=== PATIENT | male | born 1935 | race African-American/Black ===

== ENCOUNTER 2023-09-11 15:00 | Inpatient (IN) | payer MEDICARE ==
[~2023-09-11] VITALS: Ht 185.4 cm; Wt 81.3 kg
[2023-09-11 15:09] VITALS: O2SAT 90
[2023-09-11] MEDS ORDERED: SODIUM CHLORIDE 0.9% 1,000 ML IV ONE (15:15)
[2023-09-11 15:31] LABS: BG BASE EXCESS -8.5 mmol/L (-2.0-2.0); BG CARBOXYHEMOGLOBIN 0.3 % (0.5-1.5); BG DEOXYHEMOGLOBIN 0.6 % (0.0-5.0); BG HCO3 ACT 15.9 mmol/L (22.0-26.0); BG METHEMOGLOBIN 0.3 % (0.0-1.5); BG OXYGEN SATURATION 99.4 % (92.0-98.5); BG OXYHEMOGLOBIN 98.8 % (94.0-97.0); BG PCO2 29.3 mmHg (35.0-45.0); BG PH 7.353 (7.350-7.450); BG PO2 189.8 mmHg (75.0-100.0); BG SAMPLE SITE RIGHT BRACHIAL; BG TOTAL HEMOGLOBIN 9.9 g/dL (12.0-18.0); BG VENT MODE NASAL CANNULA
[2023-09-11 18:00] LABS: BASOPHILS % 0.3 % (0.0-2.0); EOSINOPHILS % 1.1 % (0.0-5.0); HEMATOCRIT. 25.9 % (42.0-52.0); HEMOGLOBIN. 8.5 g/dL (14.0-18.0); LYMPHOCYTES % 13.3 % (20.0-50.0); MEAN CORPUSCULAR HEMOGLOBIN 31.3 pg (28.0-32.0); MEAN CORPUSCULAR HGB CONC 32.8 g/dL (31.0-37.0); MEAN CORPUSCULAR VOLUME 95.3 fL (80.0-94.0); MEAN PLATELET VOLUME 10.4 fl (7.4-10.4); MONOCYTES % 7.3 % (2.0-8.0); PLATELET 193 x1000/uL (130-400); RED BLOOD CELL COUNT 2.72 mill/uL (4.7-6.1); RED CELL DISTRIBUTION WIDTH 16.3 % (11.6-14.6); WHITE BLOOD COUNT 9.1 x1000/uL (4.5-11.0)
[2023-09-11 18:12] LABS: ALANINE AMINOTRANSFERASE 18 IU/L (10-49); ALBUMIN 3.3 g/dL (3.2-4.8); ASPARTATE AMINOTRANSFERASE 28 IU/L (<34); BILIRUBIN TOTAL 0.2 mg/dL (0.1-1.0); CALCIUM 8.8 mg/dL (8.7-10.4); CARBON DIOXIDE 17 mEq/L (21-32); CHLORIDE 101 mEq/L (98-107); CREATININE 4.3 mg/dL (0.6-1.3); GLUCOSE 84 mg/dL (70-105); PROTEIN TOTAL 6.3 g/dL (6.0-8.3); SODIUM 131 mEq/L (136-145)
[2023-09-11 18:19] LABS: TROPONIN I HIGH SENSITIVITY 57 ng/L (3.0-53); UREA NITROGEN BLOOD 125 mg/dL (9-23)
[2023-09-11 19:42] LABS: TROPONIN I HIGH SENSITIVITY 56 ng/L (3.0-53)
[2023-09-11] MEDS ORDERED: MAGNESIUM 2 G PREMIX 50 ML IV NR (20:30)
[2023-09-11] MEDS ORDERED: NOREPINEPHRINE 8MG/250ML PMX 250 ML IV PRN (20:30)
[2023-09-12] VITALS (40 sets, daily range): BP systolic 92–121; BP diastolic 44–70; PULSE 65–81; RESP 11–22; TEMP 97.5–97.9
[2023-09-12] MEDS ORDERED: ACETAMINOPHEN 325MG TABLET PO PRN (07:45)
[2023-09-12] MEDS: SODIUM CHLORIDE 0.9% 1,000 ML IV SCH ×2 (08:37→18:07)
[2023-09-12] MEDS: ASPIRIN 81MG TABLET PO SCH (16:18)
[2023-09-12] MEDS: CLOPIDOGREL 75MG TABLET PO SCH (16:18)
[2023-09-12] MEDS: PANTOPRAZOLE SODIUM 40 MG/VIAL IV SCH (16:19)
[2023-09-12 17:52] LABS: CLARITY URINE CLEAR (CLEAR); COLOR URINE YELLOW (YELLOW)
[2023-09-12 17:53] LABS: GLUCOSE URINE NEGATIVE (NEGATIVE); KETONES URINE 1+ (NEGATIVE); LEUKOCYTE ESTERASE URINE NEGATIVE (NEGATIVE); NITRITE URINE NEGATIVE (NEGATIVE); OCCULT BLOOD URINE NEGATIVE (NEGATIVE); PH URINE 5.5 (4.5-8.0); PROTEIN URINE NEGATIVE (NEGATIVE); SPECIFIC GRAVITY URINE 1.015 (1.005-1.030); UROBILINOGEN URINE 0.2 E.U./dL (0.2-1.0)
[2023-09-12 18:29] LABS: BASOPHILS % 0.3 % (0.0-2.0); EOSINOPHILS % 0.7 % (0.0-5.0); HEMATOCRIT. 29.1 % (42.0-52.0); HEMOGLOBIN. 9.5 g/dL (14.0-18.0); MEAN CORPUSCULAR HEMOGLOBIN 30.3 pg (28.0-32.0); MEAN CORPUSCULAR HGB CONC 32.7 g/dL (31.0-37.0); MEAN CORPUSCULAR VOLUME 92.7 fL (80.0-94.0); MONOCYTES % 6.1 % (2.0-8.0); NEUTROPHILS % 82.9 % (40.0-76.0); PLATELET 226 x1000/uL (130-400); RED BLOOD CELL COUNT 3.14 mill/uL (4.7-6.1); RED CELL DISTRIBUTION WIDTH 16.6 % (11.6-14.6); WHITE BLOOD COUNT 10.1 x1000/uL (4.5-11.0)
[2023-09-12] MEDS ORDERED: FOLI1TAB33 MT (18:40)
[2023-09-12] MEDS ORDERED: CARV6.2548 PO (18:40)
[2023-09-12] MEDS ORDERED: ALLO300T2 MT (18:40)
[2023-09-12] MEDS ORDERED: MELO-106 PO (18:40)
[2023-09-12] MEDS ORDERED: ASPI-1079 PO (18:40)
[2023-09-12] MEDS ORDERED: ATOR20TA PO (18:40)
[2023-09-12] MEDS ORDERED: CLOP75TA33 PO (18:40)
[2023-09-12] MEDS ORDERED: NITR0.4T49 SL (18:40)
[2023-09-12] MEDS ORDERED: INDA1.255 PO (18:40)
[2023-09-12 18:51] LABS: CALCIUM 8.7 mg/dL (8.7-10.4)
[2023-09-12 19:00] LABS: CREATININE 2.8 mg/dL (0.6-1.3)
[2023-09-12 22:16] LABS: CALCIUM 8.8 mg/dL (8.7-10.4); CREATININE 2.7 mg/dL (0.6-1.3)
[2023-09-12 22:56] LABS: HEPATITIS B SURFACE ANTIGEN NEGATIVE (Negative); HEPATITIS C AB NON REACTIVE (Neg) (Negative)
[2023-09-13] VITALS (54 sets, daily range): BP systolic 90–127; BP diastolic 46–77; PULSE 64–97; RESP 10–22; TEMP 97.7–98
[2023-09-13] MEDS: SODIUM CHLORIDE 0.9% 1,000 ML IV SCH ×2 (04:00→14:00)
[2023-09-13 06:28] LABS: BASOPHILS % 0.5 % (0.0-2.0); EOSINOPHILS % 1.3 % (0.0-5.0); HEMATOCRIT. 29.6 % (42.0-52.0); HEMOGLOBIN. 9.7 g/dL (14.0-18.0); LYMPHOCYTES % 13.1 % (20.0-50.0); MEAN CORPUSCULAR HEMOGLOBIN 30.9 pg (28.0-32.0); MEAN CORPUSCULAR HGB CONC 32.8 g/dL (31.0-37.0); MEAN PLATELET VOLUME 9.7 fl (7.4-10.4); MONOCYTES % 7.7 % (2.0-8.0); NEUTROPHILS % 77.4 % (40.0-76.0); PLATELET 222 x1000/uL (130-400); RED BLOOD CELL COUNT 3.15 mill/uL (4.7-6.1); RED CELL DISTRIBUTION WIDTH 16.9 % (11.6-14.6)
[2023-09-13 08:52] LABS: CARBON DIOXIDE 19 mEq/L (21-32); CHLORIDE 109 mEq/L (98-107); CREATINE KINASE 81 IU/L (46-171); GLUCOSE 80 mg/dL (70-105); PHOSPHORUS 3.7 mg/dL (2.5-4.9); POTASSIUM 5.4 mEq/L (3.5-5.1); SODIUM 139 mEq/L (136-145); UREA NITROGEN BLOOD 70 mg/dL (9-23)
[2023-09-13] MEDS: CITRIC ACID/SODIUM CITRATE SOLN 30ML UDC PO SCH ×4 (09:00→18:23)
[2023-09-13] MEDS ORDERED: SODIUM POLYSTYRENE SULFONATE 15 G/60 ML BOT PO NR (09:00)
[2023-09-13 09:07] LABS: CREATININE 2.6 mg/dL (0.6-1.3)
[2023-09-13] MEDS: CLOPIDOGREL 75MG TABLET PO SCH (09:35)
[2023-09-13] MEDS: PANTOPRAZOLE SODIUM 40 MG/VIAL IV SCH (09:35)
[2023-09-13] MEDS: ASPIRIN 81MG TABLET PO SCH (09:35)
[2023-09-14] VITALS (16 sets, daily range): BP systolic 110–133; BP diastolic 50–68; PULSE 67–114; RESP 12–26; TEMP 97.5–98.7
[2023-09-14] MEDS: SODIUM CHLORIDE 0.9% 1,000 ML IV SCH ×2 (01:07→10:00)
[2023-09-14 01:40] LABS: POTASSIUM 4.5 mEq/L (3.5-5.1)
[2023-09-14 05:40] LABS: CALCIUM 8.9 mg/dL (8.7-10.4); CARBON DIOXIDE 18 mEq/L (21-32); CHLORIDE 113 mEq/L (98-107); GLUCOSE 92 mg/dL (70-105); PHOSPHORUS 3.2 mg/dL (2.5-4.9); SODIUM 142 mEq/L (136-145); UREA NITROGEN BLOOD 41 mg/dL (9-23)
[2023-09-14 05:57] LABS: CREATININE 1.7 mg/dL (0.6-1.3)
[2023-09-14] MEDS ORDERED: SODIUM POLYSTYRENE SULFONATE 15 G/60 ML BOT PO NR (07:15)
[2023-09-14] MEDS ORDERED: MAGNESIUM 2 G PREMIX 50 ML IV NR (08:00)
[2023-09-14] MEDS: PANTOPRAZOLE SODIUM 40 MG/VIAL IV SCH (09:00)
[2023-09-14 09:17] LABS: BASOPHILS % 0.6 % (0.0-2.0); EOSINOPHILS % 1.6 % (0.0-5.0); HEMATOCRIT. 27.5 % (42.0-52.0); HEMOGLOBIN. 8.9 g/dL (14.0-18.0); LYMPHOCYTES % 14.5 % (20.0-50.0); MEAN CORPUSCULAR HEMOGLOBIN 30.2 pg (28.0-32.0); MEAN CORPUSCULAR HGB CONC 32.3 g/dL (31.0-37.0); MEAN CORPUSCULAR VOLUME 93.4 fL (80.0-94.0); MEAN PLATELET VOLUME 9.2 fl (7.4-10.4); MONOCYTES % 7.2 % (2.0-8.0); NEUTROPHILS % 76.1 % (40.0-76.0); PLATELET 226 x1000/uL (130-400); RED BLOOD CELL COUNT 2.95 mill/uL (4.7-6.1); RED CELL DISTRIBUTION WIDTH 17.1 % (11.6-14.6)
[2023-09-14 09:19] LABS: WHITE BLOOD COUNT 11.1 x1000/uL (4.5-11.0)
[2023-09-14] MEDS: CITRIC ACID/SODIUM CITRATE SOLN 30ML UDC PO SCH ×3 (10:47→17:38)
[2023-09-14] MEDS: ASPIRIN 81MG TABLET PO SCH (10:48)
[2023-09-14] MEDS: CLOPIDOGREL 75MG TABLET PO SCH (10:48)
[2023-09-14] MEDS ORDERED: CEFTRIAXONE 1GM PREMIX 50 ML IV SCH (14:45)
[2023-09-14] MEDS: CEFTRIAXONE 1,000 MG in DEXTROSE 5% WATER 50 ML IV SCH (17:38)
[2023-09-15] VITALS (12 sets, daily range): BP systolic 111–137; BP diastolic 64–73; PULSE 72–101; RESP 15–22; TEMP 97.8–98.4
[2023-09-15 05:17] LABS: BASOPHILS % 0.4 % (0.0-2.0); EOSINOPHILS % 1.1 % (0.0-5.0); HEMATOCRIT. 29.2 % (42.0-52.0); HEMOGLOBIN. 9.5 g/dL (14.0-18.0); LYMPHOCYTES % 11.2 % (20.0-50.0); MEAN CORPUSCULAR HEMOGLOBIN 31.1 pg (28.0-32.0); MEAN CORPUSCULAR HGB CONC 32.6 g/dL (31.0-37.0); MEAN CORPUSCULAR VOLUME 95.4 fL (80.0-94.0); MEAN PLATELET VOLUME 8.8 fl (7.4-10.4); MONOCYTES % 6.3 % (2.0-8.0); PLATELET 211 x1000/uL (130-400); RED BLOOD CELL COUNT 3.06 mill/uL (4.7-6.1); RED CELL DISTRIBUTION WIDTH 17.3 % (11.6-14.6); WHITE BLOOD COUNT 11.2 x1000/uL (4.5-11.0)
[2023-09-15 05:52] LABS: CARBON DIOXIDE 24 mEq/L (21-32); CHLORIDE 110 mEq/L (98-107); CREATININE 1.2 mg/dL (0.6-1.3); GLUCOSE 112 mg/dL (70-105); PHOSPHORUS 2.4 mg/dL (2.5-4.9); POTASSIUM 3.8 mEq/L (3.5-5.1); SODIUM 145 mEq/L (136-145); UREA NITROGEN BLOOD 33 mg/dL (9-23)
[2023-09-15] MEDS: PANTOPRAZOLE SODIUM 40 MG/VIAL IV SCH (09:05)
[2023-09-15] MEDS: ASPIRIN 81MG TABLET PO SCH (09:05)
[2023-09-15] MEDS: CITRIC ACID/SODIUM CITRATE SOLN 30ML UDC PO SCH (09:05)
[2023-09-15] MEDS: CLOPIDOGREL 75MG TABLET PO SCH (09:06)
[2023-09-15] MEDS ORDERED: MAGNESIUM 2 G PREMIX 50 ML IV SCH (11:00)
[2023-09-15] MEDS: CEFTRIAXONE 1,000 MG in DEXTROSE 5% WATER 50 ML IV SCH (15:30)
[2023-09-15] MEDS: SODIUM CHLORIDE 0.45% 1,000 ML IV SCH (17:14)
[2023-09-16] VITALS (7 sets, daily range): BP systolic 119–142; BP diastolic 59–114; PULSE 70–103; RESP 15–20; TEMP 97.4–98
[2023-09-16] MEDS: SODIUM CHLORIDE 0.45% 1,000 ML IV SCH (05:05)
[2023-09-16 07:45] LABS: BASOPHILS % 0.5 % (0.0-2.0); EOSINOPHILS % 1.4 % (0.0-5.0); HEMATOCRIT. 28.8 % (42.0-52.0); HEMOGLOBIN. 9.4 g/dL (14.0-18.0); LYMPHOCYTES % 14.4 % (20.0-50.0); MEAN CORPUSCULAR HEMOGLOBIN 30.6 pg (28.0-32.0); MEAN CORPUSCULAR HGB CONC 32.7 g/dL (31.0-37.0); MEAN CORPUSCULAR VOLUME 93.7 fL (80.0-94.0); MEAN PLATELET VOLUME 10.1 fl (7.4-10.4); MONOCYTES % 7.1 % (2.0-8.0); NEUTROPHILS % 76.6 % (40.0-76.0); PLATELET 209 x1000/uL (130-400); RED BLOOD CELL COUNT 3.07 mill/uL (4.7-6.1); RED CELL DISTRIBUTION WIDTH 16.8 % (11.6-14.6); WHITE BLOOD COUNT 11.1 x1000/uL (4.5-11.0)
[2023-09-16 08:36] LABS: ALANINE AMINOTRANSFERASE 23 IU/L (10-49); ALBUMIN 3.1 g/dL (3.2-4.8); ASPARTATE AMINOTRANSFERASE 29 IU/L (<34); BILIRUBIN TOTAL 0.5 mg/dL (0.1-1.0); CALCIUM 8.7 mg/dL (8.7-10.4); CARBON DIOXIDE 27 mEq/L (21-32); CHLORIDE 105 mEq/L (98-107); CREATININE 1.1 mg/dL (0.6-1.3); GLUCOSE 98 mg/dL (70-105); PHOSPHORUS 2.7 mg/dL (2.5-4.9); POTASSIUM 3.3 mEq/L (3.5-5.1); PROTEIN TOTAL 6.2 g/dL (6.0-8.3); SODIUM 140 mEq/L (136-145); UREA NITROGEN BLOOD 21 mg/dL (9-23)
[2023-09-16] MEDS: ASPIRIN 81MG TABLET PO SCH (08:59)
[2023-09-16] MEDS ORDERED: TAMSULOSIN HCL 0.4MG SR CAPSULE PO SCH (09:00)
[2023-09-16] MEDS: CLOPIDOGREL 75MG TABLET PO SCH (09:00)
[2023-09-16] MEDS: PANTOPRAZOLE SODIUM 40 MG/VIAL IV SCH (09:07)
[2023-09-16] MEDS ORDERED: POTASSIUM CHLORIDE 20MEQ TABLET SR PO SCH (11:00)
[2023-09-16] MEDS: MAGNESIUM 2 G PREMIX 50 ML IV SCH ×2 (12:00→15:28)
[2023-09-16] MEDS: CEFTRIAXONE 1,000 MG in DEXTROSE 5% WATER 50 ML IV SCH (15:29)
[2023-09-17] MEDS ORDERED: FAMOTIDINE 20MG/2ML VIAL IV SCH (09:00)
== END 2023-09-16 19:00 | DRG 640 ==
LOC: ER 15:00 → EDBEDREQ 18:53 → EDBEDREQTM 18:53 → EDBEDREQSVC 18:53 → MICUSO 20:22 → EDBEDREQTM 20:31 → EDBEDREQ 20:31 → CVICU 09-12 07:52 → 5EST 09-14 09:00
PROVIDERS: ADMIT Internal Medicine; ATTEND Internal Medicine
DX: E86.0 Dehydration (principal); N17.0 Acute kidney failure with tubular necrosis; N13.8 Other obstructive and reflux uropathy; E87.1 Hypo-osmolality and hyponatremia; E87.20 Acidosis, unspecified; E87.5 Hyperkalemia; E78.5 Hyperlipidemia, unspecified; M10.9 Gout, unspecified; N18.9 Chronic kidney disease, unspecified; N40.1 Benign prostatic hyperplasia with lower urinary tract symptoms; E83.39 Other disorders of phosphorus metabolism; E83.42 Hypomagnesemia; R32 Unspecified urinary incontinence; S91.311A Laceration without foreign body, right foot, initial encounter; Z85.118 Personal history of other malignant neoplasm of bronchus and lung; W18.39XA Other fall on same level, initial encounter; Y93.89 Activity, other specified; Y92.89 Other specified places as the place of occurrence of the external cause; Y99.8 Other external cause status
CPT/HCPCS: 36415; 36600; 71045; 76770; 76857; 78580; 80048; 80053; 81003; 82375; 82550; 82805; 83605; 83735; 83880; 84100; 84132; 84145; 84484; 85025; 85379; 86301; 86705; 87340; 87426; 87804; 93005; 93306; 93880; 93970; 97116; 97162; 97166; 97530; 97535; 99285; C9113; C9803; J0696; J3475; J3490; J7030; J7060; A4315

== ENCOUNTER 2023-10-16 12:33 | Emergency (ER) | payer MEDICARE ==
[~2023-10-16] VITALS: Ht 185.4 cm; Wt 82.0 kg
[~2023-10-16 12:33] MED LIST: ALLO300T2 MT; ASPI-1079 PO; ATOR20TA PO; CLOP75TA33 PO; FOLI1TAB33 MT; MELO-106 PO
[2023-10-16 12:36] VITALS: O2SAT 98
[2023-10-16 12:40] VITALS: PULSE 68; RESP 16
[2023-10-16 13:51] LABS: INR 1.2
[2023-10-16 13:56] LABS: ALANINE AMINOTRANSFERASE 23 IU/L (10-49); ALBUMIN 3.1 g/dL (3.2-4.8); ASPARTATE AMINOTRANSFERASE 51 IU/L (<34); BILIRUBIN TOTAL 0.4 mg/dL (0.1-1.0); CALCIUM 8.9 mg/dL (8.7-10.4); CARBON DIOXIDE 18 mEq/L (21-32); CHLORIDE 95 mEq/L (98-107); CREATINE KINASE 85 IU/L (46-171); GLUCOSE 147 mg/dL (70-105); PROTEIN TOTAL 6.5 g/dL (6.0-8.3); SODIUM 129 mEq/L (136-145); TROPONIN I HIGH SENSITIVITY 28 ng/L (3.0-53); UREA NITROGEN BLOOD 46 mg/dL (9-23)
[2023-10-16 14:01] LABS: CREATININE 3.2 mg/dL (0.6-1.3)
[2023-10-16 14:02] LABS: POTASSIUM 6.8 mEq/L (3.5-5.1)
[2023-10-16 14:11] VITALS: BP 70/40
[2023-10-16] MEDS: NOREPINEPHRINE 8MG/250ML PMX 250 ML IV ONE (14:11)
[2023-10-16] MEDS: SODIUM CHLORIDE 0.9% 1,000 ML IV ONE (14:12)
== END 2023-10-16 13:40 ==
LOC: ER 12:33
DX: R06.02 Shortness of breath (principal)
CPT/HCPCS: 36556; 80053; 82550; 85610; 84484; 36415; 31500; 92950; 99285; 93005; 71045; J3490; J7030; 94002